=== PATIENT | female | born 1960 | race Caucasian/White ===

== ENCOUNTER 2018-08-21 22:20 | Emergency (ER) | payer OTHER ==
[~2018-08-21] VITALS: Ht 170.2 cm; Wt 108.9 kg
[2018-08-21] MEDS ORDERED: HYDROcodone-ACET 7.5/325MG TAB PO ONE (23:00)
[2018-08-21 23:10] VITALS: BP 157/83
[2018-08-21] MEDS ORDERED: GENTAMICIN OPTH sol 0.3% 5ml LEFTEYE ONE (23:15)
[2018-08-21] MEDS ORDERED: GENTAMICIN OPTH sol 0.3% 5ml ONE (23:58)
== END 2018-08-22 00:03 | disposition home or self-care (01) ==
LOC: ER 22:27
DX: H16.8 Other keratitis (principal); K21.9 Gastro-esophageal reflux disease without esophagitis; E78.5 Hyperlipidemia, unspecified

== ENCOUNTER 2024-09-03 12:14 | Day surgery (SDC) | payer MEDICAID ==
[2024-08-27 14:29] LABS: Urine Bacteria None Seen /hpf (None Seen)
[2024-08-27 14:45] LABS: Basophils # (auto) 0 10 ^3/uL (0-0.2); Basophils % (auto) 0.7 % (0.0-2.0); Eosinophils # (auto) 0 10 ^3/uL (0-0.8); Eosinophils % (auto) 0.8 % (0.0-7.0); Hematocrit 43.5 % (36.0-46.0); Hemoglobin 14.8 g/dL (12.2-16.2); Lymphocytes # (auto) 0.4 10 ^3/uL (0.4-5.4); Lymphocytes % (auto) 14.1 % (10.0-50.0); Mean Corpuscular Hemoglobin 31.1 pg (28.0-32.0); Mean Corpuscular Hgb Conc. 34.1 g/dL (32.0-36.0); Mean Corpuscular Volume 91.3 fL (80.0-100.0); Monocytes # (auto) 0.4 10 ^3/uL (0-1.3); Monocytes % (auto) 11.4 % (0.0-12.0); Neutrophils # (auto) 2.3 10 ^3/uL (1.6-8.6); Nucleated Red Blood Cells % 0.2 %; Platelet Count (auto) 170 10^3/uL (140-450); Red Blood Cells 4.76 10^6/uL (4.0-5.20); Red Cell Distribution Width 13.3 % (11.8-14.3); White Blood Cell 3.2 10^3/uL (4.4-10.8)
[2024-08-27 14:57] LABS: INR 0.98 (0.9-1.15); Partial Thromboplastin Time 26.6 SEC (24.5-34.5); Prothrombin Time 10.4 sec (9.3-11.8)
[2024-08-27 15:02] LABS: Urine Blood Negative /uL (Negative); Urine Clarity Clear (Clear); Urine Color Light-Yellow (Yellow); Urine Protein, UAD Negative (Negative); Urine Specific Gravity 1.008 (1.001-1.035); Urine Squamous Epithelial Cell FEW /hpf (<5); Urine Urobilinogen Normal (Negative); Urine WBC < 1 /HPF (0-5)
[2024-08-27 15:27] LABS: Alanine Aminotransferase 25 U/L (7-40); Alkaline Phosphatase 80 U/L (46-116); Anion Gap 11 (5-15); Aspartate Aminotransferase 18 U/L (13-40); BUN/Creatinine Ratio 13.4 (10.0-20.0); Blood Urea Nitrogen 11 mg/dL (9-23); Carbon Dioxide 27 mmol/L (20-31); Chloride 102 mmol/L (98-107); Glucose 92 mg/dL (74-106); Sodium 140 mmol/L (136-145); Total Protein 7.4 g/dL (5.7-8.2)
[2024-08-27 15:28] LABS: Bilirubin, Total 0.6 mg/dL (0.2-1.0)
[2024-08-27 15:29] LABS: Albumin 4.9 g/dL (3.2-4.8)
[~2024-09-03] VITALS: Ht 170.2 cm; Wt 92.5 kg
[~2024-09-03 12:14] MED LIST: ANAS1TAB7 PO; ATOR-507 PO; BIOT5TAB3 PO; CALC-437 OR; CINN500C7 PO; GABA-1308 PO; HYDR-4902 PO; IBUP-1456 PO; LISI-285 PO; MAGN250T3 PO; MISC1TAB PO; MORI500C PO; MULT-688 PO; OMEG-20 PO; OMEP20TA PO; SELE200T23 OR; SUMA50TA2 PO; TRAM50TA2 PO; TRAZ-228 PO; TURM500C3 OR; VENL-194 PO; VITA200C27 PO
[2024-09-03] MEDS ORDERED: PROPOFOL 10 MG/ML 20 ML IV ONE (13:02)
[2024-09-03] MEDS ORDERED: KETAMINE 50mg/ML 1ml syringe ONE (13:02)
[2024-09-03] MEDS ORDERED: ONDANSETRON HCL 4 MG/2 ML VIAL ONE (13:02)
[2024-09-03] MEDS ORDERED: DexAMETHasone SOD PHOS 10MG/1ML VIAL INJ ONE (13:02)
[2024-09-03] MEDS ORDERED: KETOROLAC TROMETH 30 MG/ML 1ML VIAL ONE (13:02)
[2024-09-03] MEDS ORDERED: GLYCOPYRROLATE 0.2 MG/ML 1ML VIAL ONE (13:02)
--- NOTE | 2024-09-03 13:17 | DVHOP2 ---
Operative Report - 2 Report Details Date: 09/03/24 Preop Diagnosis: 1. Right foot second metatarsalgia 2. Right foot fifth toe exostosis 3. Right foot medial hallux border matrixectomy 4. Left foot second metatarsalgia 5. Left foot 3rd hammer toe repair Postop Diagnosis: Bilateral foot metatarsalgia, left foot hammer toe, right foot hallux medial border ingrown, right foot fifth toe exostosis Surgeon: Erika Pedersen MD Anesthesiologist: See anesthesia Anesthesia: General Consent: The patient was informed of the risks and benefits of the procedure. These include but are not limited to complications of anesthesia, postoperative infection, incomplete relief of symptoms, recurrence of symptoms, damage to blood vessels, nerves and tendons, deep venous thrombosis, pulmonary embolism and possible need for repeat surgery in the future. Complications: None Estimated Blood Loss: Minimal Fluids: See anesthesia Findings: Consistent with the diagnosis Indications for Surgery: Worsening bilateral foot pain Name of Procedure Performed 1. Right foot second chloé osteotomy (87267) 2. Right foot fifth toe exostosis (91248) 3. Right foot medial hallux border matrixectomy (62770) 4. Left foot second chloé osteotomy (66123) 5. Left foot 3rd hammer toe repair (70757) Procedure Details Procedure Details: PRE-PROCEDURE INFORMATION: In the pre-op holding area, the extremity to be operated on was clearly marked and the patient verified correct laterality of the marking. The patient was transferred to the OR table and placed in a supine position. A timeout was performed in which identification of the correct patient, procedure, location, and materials was done. The bilateral foot and leg were prepped and draped in normal sterile fashion. DESCRIPTION OF PROCEDURE: Attention was directed to the right 2nd metatarsal head where a stab incision was made. The incision was deepened through blunt and sharp dissection. Care was taken to avoid damage to neurovascular structures throughout dissection. Incision was carried to the level of the 2nd metatarsal head or on fluoroscopy as well as preoperative x-rays, it was noted there was significant plantar flexion of the metatarsal head. Using an MIS bur, the an osteotomy was performed across the neck of the metatarsal head. The metatarsal head was then able to float. It was noted off intraoperative fluoroscopy, there was significant reduction deformity. Attention was directed to the right hallux medial border, using a freer elevator, Macedonian Anvil, and hemostat, the offending nail and/or nail border(s) was elevated and removed. Mild serous drainage noted, no purulent drainage. Non- viable tissue was removed with a curette. The nail borders were then treated with 3 applications of approximately 20-30 seconds of silver nitrate followed by neutralization with alcohol. Attention was directed to the right 5th digit where the exostosis was located. A stab incision was made just medial to the 5th digit. The incision was deepened through blunt and sharp dissection. Care was taken to avoid any neurovascular and tendinous structures. Using the Arthrex MIS bur, the exostosis was then removed in its entirety. After the bur was used the exostosis was no longer felt clinically. The incision was closed with a 4-0 nylon. Attention was directed to the left 2nd metatarsal head where a stab incision was made. The incision was deepened through blunt and sharp dissection. Care was taken to avoid damage to neurovascular structures throughout dissection. Incision was carried to the level of the 2nd metatarsal head or on fluoroscopy as well as preoperative x-rays, it was noted there was significant plantar flexion of the metatarsal head. Using an MIS bur, the an osteotomy was performed across the neck of the metatarsal head. The metatarsal head was then able to float. It was noted off intraoperative fluoroscopy, there was significant reduction deformity. Attention was directed to the left 3rd digit where a hammer toe was located. A stab incision was made just lateral to the 3rd hammer toe. The incision was deepened through blunt and sharp dissection. Care was taken to avoid any neurovascular and tendinous structures. Using the Arthrex MIS bur, the osteotomy of the proximal phalanx was performed to correct the hammer toe deformity. After the bur was used the toe was clinically straight. The incision was closed with a 4-0 nylon. All surgical wounds were irrigated copiously with saline and closed in layers with the aforementioned suture material. A dry sterile dressing was placed on the surgical extremity. The patient was placed in a bilateral postop shoe POSTOPERATIVE INFORMATION: The patient tolerated the above noted procedure and anesthesia well and was transferred to the PACU with vital signs stable, and vascular status intact with capillary refill intact to all digits. Postoperative instructions reviewed in detail with the patient with written instructions provided. Patient will return to clinic in approximately 10-14 days for first postoperative visit. Patient has the number of the clinic and was instructed to call prior to that time should any problems, questions, or concerns arise. Condition Good Disposition Home ERIKA PEDERSEN DPM September 03, 2024 13:17
[2024-09-03] MEDS ORDERED: SILVER NITRATE-POTAS NITRA STICK TOP ONE (13:25)
[2024-09-03] MEDS: GABAPENTIN 300 MG CAP PO ONE (15:00)
[2024-09-03] MEDS: CELECOXIB 100 MG CAP PO ONE (15:00)
[2024-09-03] MEDS: ACETAMINOPHEN IV 1000 MG/100ML (10MG/ML) IV ONE (15:20)
[2024-09-03] MEDS: BUPIVACAINE 0.5% P/F INJ 10 ML VIAL ONE (15:31)
[2024-09-03] MEDS ORDERED: ceFAZolin 1GM VL ONE (15:36)
[2024-09-03] MEDS: BACITRACIN TOP OINT 1 UD PKG TOP ONE (15:48)
[2024-09-03 15:56] VITALS: PULSE 61; RESP 19; O2SAT 98
[2024-09-03] MEDS ORDERED: HYDROmorphone HCL 2 MG/ML VL/or syr IV PRN (16:15)
[2024-09-03] MEDS ORDERED: ePHEDrine SULFATE 50 MG/ML AMP IV PRN (16:15)
[2024-09-03] MEDS ORDERED: fentaNYL CITRATE 100 MCG/2 ML VL IV PRN (16:15)
[2024-09-03] MEDS ORDERED: oxyCODONE HCL 5MG TAB PO PRN (16:15)
[2024-09-03] MEDS ORDERED: ONDANSETRON HCL 4 MG/2 ML VIAL IV PRN (16:15)
[2024-09-03] MEDS ORDERED: FLUMAZENIL 0.1 MG/ML INJ 10ML MDV IV PRN (16:15)
[2024-09-03] MEDS ORDERED: hydrALAZINE HCL 20 MG/ML VL IV PRN (16:15)
[2024-09-03] MEDS ORDERED: NALOXONE HCL 0.4 MG/ML VIAL IV PRN (16:15)
[2024-09-03 16:45] VITALS: BP 139/92; PULSE 62; RESP 16; O2SAT 97
== END 2024-09-03 17:00 | disposition home or self-care (01) ==
LOC: SUR 12:14
PROVIDERS: ATTEND Podiatrist
DX: M20.42 Other hammer toe(s) (acquired), left foot (principal); M77.41 Metatarsalgia, right foot; M77.9 Enthesopathy, unspecified; M20.41 Other hammer toe(s) (acquired), right foot; M77.42 Metatarsalgia, left foot; M89.9 Disorder of bone, unspecified; M79.671 Pain in right foot; M79.672 Pain in left foot; L60.0 Ingrowing nail; E66.9 Obesity, unspecified; Z68.32 Body mass index [BMI] 32.0-32.9, adult; I10 Essential (primary) hypertension; Z79.899 Other long term (current) drug therapy; K21.9 Gastro-esophageal reflux disease without esophagitis
CPT/HCPCS: 11750; 28124; 28285; 28308; 36415; 80053; 81001; 85025; 85610; 85730; J0690; J1100; J1885; J2405; J2704; J3490; J0131

== ENCOUNTER 2025-04-03 09:47 | Day surgery (SDC) | payer OTHER, MEDICAID ==
[2025-03-29 11:45] LABS: Hematocrit 43.1 % (36.0-46.0); Hemoglobin 14.5 g/dL (12.2-16.2); Mean Corpuscular Hemoglobin 30.9 pg (28.0-32.0); Mean Corpuscular Volume 91.9 fL (80.0-100.0); Nucleated Red Blood Cells % 0.1 %
[2025-03-29 11:50] LABS: INR 0.99 (0.9-1.15); Partial Thromboplastin Time 25.2 SEC (24.5-34.5); Prothrombin Time 10.5 sec (9.3-11.8)
[2025-03-29 12:06] LABS: Urine Protein, UAD Negative (Negative)
[2025-03-29 12:33] LABS: Alanine Aminotransferase 23 U/L (7-40); Albumin 4.7 g/dL (3.2-4.8); Alkaline Phosphatase 69 U/L (46-116); Anion Gap 8 (5-15); BUN/Creatinine Ratio 17.8 (10.0-20.0); Bilirubin, Total 0.8 mg/dL (0.2-1.0); Blood Urea Nitrogen 13 mg/dL (9-23); Calcium 9.8 mg/dL (8.7-10.4); Carbon Dioxide 30 mmol/L (20-31); Chloride 103 mmol/L (98-107); Glucose 87 mg/dL (74-106); Potassium 4.3 mmol/L (3.5-5.1); Sodium 141 mmol/L (136-145); Total Protein 7.2 g/dL (5.7-8.2)
[~2025-04-03] VITALS: Ht 170.2 cm; Wt 88.5 kg
[~2025-04-03 09:47] MED LIST changes: +ALPH50TA PO; +CYAN50TA3 PO; +SEMA0.25 SC; +TERB250T92 PO
[2025-04-03] MEDS ORDERED: ceFAZolin 2 GM/D5W50ml 50 ML IV ONE (09:50)
[2025-04-03] MEDS ORDERED: LIDOCAINE 1% INJ PF 5ML AMP ONE (09:59)
[2025-04-03] MEDS ORDERED: ONDANSETRON HCL 4 MG/2 ML VIAL ONE (09:59)
[2025-04-03] MEDS ORDERED: KETOROLAC TROMETH 30 MG/ML 1ML VIAL ONE (09:59)
[2025-04-03] MEDS ORDERED: PROPOFOL 10 MG/ML 20 ML IV ONE (10:00)
[2025-04-03] MEDS ORDERED: GLYCOPYRROLATE 0.2 MG/ML 1ML VIAL ONE (10:00)
[2025-04-03] MEDS ORDERED: KETAMINE 50mg/ML 1ml syringe ONE (10:00)
[2025-04-03 11:03] VITALS: PULSE 59; RESP 20; TEMP 97.8; O2SAT 97
--- NOTE | 2025-04-03 11:06 | DVHOP2 ---
Operative Report - 2 Report Details Date: 04/03/25 Preop Diagnosis: 1. Right foot bunion 2. Right foot third metatarsalgia 3. Right foot pain 4. Left foot third metatarsalgia Postop Diagnosis: Same as preop Surgeon: Erika Pedersen MD Anesthesiologist: See anesthesia Anesthesia: Mac Implant: Six 2 K-wire Consent: The patient was informed of the risks and benefits of the procedure. These include but are not limited to complications of anesthesia, postoperative infection, incomplete relief of symptoms, recurrence of symptoms, damage to blood vessels, nerves and tendons, deep venous thrombosis, pulmonary embolism and possible need for repeat surgery in the future. Complications: None Estimated Blood Loss: Minimal Fluids: See anesthesia Findings: Consistent with diagnosis Indications for Surgery: Worsening bilateral foot pain Name of Procedure Performed 1. Right foot MIS bunion (57498) 2. Right foot 3rd metatarsal chloé (67769) 3. Left foot 3rd metatarsal chloé (95630) Procedure Details Procedure Details: PRE-PROCEDURE INFORMATION: In the pre-op holding area, the extremity to be operated on was clearly marked and the patient verified correct laterality of the marking. The patient was transferred to the OR table and placed in a supine position. A timeout was performed in which identification of the correct patient, procedure, location, and materials was done. The bilat foot and leg were prepped and draped in normal sterile fashion. DESCRIPTION OF PROCEDURE: Attention was directed to the left 3rd metatarsal head where a stab incision was made. The incision was deepened through blunt and sharp dissection. Care was taken to avoid damage to neurovascular structures throughout dissection. Incision was carried to the level of the 2nd metatarsal head where it was noted there was significant plantar flexion of the metatarsal head. Using an MIS bur, the an osteotomy was performed across the neck of the metatarsal head. The metatarsal head was then able to float. Attention was directed to the right 3rd metatarsal head where a stab incision was made. The incision was deepened through blunt and sharp dissection. Care was taken to avoid damage to neurovascular structures throughout dissection. Incision was carried to the level of the 2nd metatarsal head where it was noted there was significant plantar flexion of the metatarsal head. Using an MIS bur, the an osteotomy was performed across the neck of the metatarsal head. The metatarsal head was then able to float. Attention was directed to the right 1st metatarsophalangeal joint where a stab incision was made at the neck of the 1st metatarsal. Care was taken to avoid damage the neurovascular and tendinous structures. An osteotomy was then made at the neck of the 1st metatarsal. The metatarsal head was then shifted into position aligning the sesamoid bones over the fragment. Using a 6 2 K-wire, the wire was then driven down the shaft of the 1st metatarsal to hold the head in place until the osteotomy has healed. All surgical wounds were irrigated copiously with saline and closed in layers with the aforementioned suture material. A dry sterile dressing was placed on the surgical extremity. The patient was placed in a postop shoe POSTOPERATIVE INFORMATION: The patient tolerated the above noted procedure and anesthesia well and was transferred to the PACU with vital signs stable, and vascular status intact with capillary refill intact to all digits. Postoperative instructions reviewed in detail with the patient with written instructions provided. Patient will return to clinic in approximately 10-14 days for first postoperative visit. Patient has the number of the clinic and was instructed to call prior to that time should any problems, questions, or concerns arise. Condition Good Disposition 2 Home Visit Coding Podiatry Date of Service if different f: Apr 03, 2025 Billing Provider: ERIKA PEDERSEN DPM Podiatry Common Visit Codes: PROCEDURE ONLY ERIKA PEDERSEN DPM Apr 03, 2025 11:06
[2025-04-03] MEDS ORDERED: NALOXONE HCL 0.4 MG/ML VIAL IV PRN (11:15)
[2025-04-03] MEDS ORDERED: ONDANSETRON HCL 4 MG/2 ML VIAL IV PRN (11:15)
[2025-04-03] MEDS ORDERED: FLUMAZENIL 0.1 MG/ML INJ 10ML MDV IV PRN (11:15)
[2025-04-03] MEDS ORDERED: hydrALAZINE HCL 20 MG/ML VL IV PRN (11:15)
[2025-04-03] MEDS ORDERED: fentaNYL CITRATE 100 MCG/2 ML VL IV PRN (11:15)
[2025-04-03] MEDS ORDERED: HYDROmorphone HCL 2 MG/ML VL/or syr IV PRN (11:15)
[2025-04-03] MEDS ORDERED: ACETAMINOPHEN IV 100 ML IV ONE (11:23)
[2025-04-03] MEDS: ACETAMINOPHEN IV 1000 MG/100ML (10MG/ML) IV ONE (11:24)
[2025-04-03] MEDS: MORPHINE SULFATE INJ 2 MG/ml SYRG IV SCH (11:54)
[2025-04-03] MEDS ORDERED: MORPHINE SULFATE 4 MG/ML SYR/VIAL ONE (12:23)
[2025-04-03 12:30] VITALS: BP 134/87; PULSE 65; RESP 21; O2SAT 94
[2025-04-03] MEDS: LIDOCAINE 1% HCL (LOCAL ANESTH.) INJ 20ML MDV ONE (12:56)
[2025-04-04] MEDS ORDERED: MORPHINE SULFATE INJ 2 MG/ml SYRG IV SCH (10:00)
== END 2025-04-03 13:00 | disposition home or self-care (01) ==
LOC: SUR 09:47
PROVIDERS: ATTEND Podiatrist
DX: M21.611 Bunion of right foot (principal); M77.41 Metatarsalgia, right foot; M77.42 Metatarsalgia, left foot; I10 Essential (primary) hypertension; K21.9 Gastro-esophageal reflux disease without esophagitis; E78.00 Pure hypercholesterolemia, unspecified; E66.9 Obesity, unspecified; Z68.30 Body mass index [BMI] 30.0-30.9, adult; Z79.899 Other long term (current) drug therapy; Z85.3 Personal history of malignant neoplasm of breast; Z98.890 Other specified postprocedural states; Z88.5 Allergy status to narcotic agent
CPT/HCPCS: 28306; 28308; 36415; 80053; 81001; 85025; 85610; 85730; C1713; J0690; J1100; J1885; J2003; J2270; J2405; J2704; J0131